=== PATIENT | female | born 1995 | race Caucasian/White ===

== ENCOUNTER 2018-11-20 15:00 | Emergency (ER) | payer MEDICAID ==
[~2018-11-20] VITALS: Ht 162.6 cm; Wt 65.8 kg
[2018-11-20 15:23] VITALS: BP 104/71; Ht 162.6 cm; Wt 65.8 kg
== END 2018-11-20 16:10 | disposition home or self-care (01) ==
LOC: ED 15:00
DX: R68.84 Jaw pain (principal); M26.601 Right temporomandibular joint disorder, unspecified

== ENCOUNTER 2018-11-21 16:25 | Emergency (ER) | payer MEDICAID ==
[~2018-11-21] VITALS: Ht 162.6 cm; Wt 66.2 kg
[2018-11-21 16:39] VITALS: Ht 162.6 cm; Wt 66.2 kg
[2018-11-21 17:17] VITALS: BP 98/55
== END 2018-11-21 17:17 | disposition home or self-care (01) ==
LOC: ED 16:25
DX: K08.89 Other specified disorders of teeth and supporting structures (principal)